=== PATIENT | male | born 1965 | race Caucasian/White ===

== ENCOUNTER 2022-03-23 07:29 | Emergency (ER) | payer MEDICAID ==
[~2022-03-23] VITALS: Ht 167.6 cm; Wt 80.0 kg
[2022-03-23 07:35] VITALS: BP 162/99
[2022-03-23] MEDS ORDERED: ACETAMINOPHEN 500 MG TABLET PO ONE (07:45)
== END 2022-03-23 10:48 | disposition home or self-care (01) ==
LOC: EMS 07:31
DX: S20.219A Contusion of unspecified front wall of thorax, initial encounter (principal); V89.2XXA Person injured in unspecified motor-vehicle accident, traffic, initial encounter; Y93.89 Activity, other specified; Y92.89 Other specified places as the place of occurrence of the external cause; Y99.8 Other external cause status
CPT/HCPCS: 71250; 99284; Z7502; Z7610